=== PATIENT | male | born 1960 | race Caucasian/White ===

== ENCOUNTER 2017-11-10 15:30 | Emergency (ER) | payer SELFPAY ==
[2017-11-10] MEDS: BENOXINATE HCL/FLUORESCEIN SOD 5 ML OPHTH RIGHT EYE (18:05)
[2017-11-10] MEDS ORDERED: TETRACAINE 0.5% 4 ML OPH RIGHT EYE (18:30)
== END 2017-11-10 19:40 | disposition home or self-care (01) ==
LOC: FTE 15:30
DX: H10.31 Unspecified acute conjunctivitis, right eye (principal); R40.2412 Glasgow coma scale score 13-15, at arrival to emergency department
CPT/HCPCS: 99283